=== PATIENT | female | born 1965 | race Two or more races ===

== ENCOUNTER 2018-01-19 07:49 | Outpatient (CLI) | payer OTHER | END 2018-01-19 07:56 | disposition home or self-care (01) | LOC: SONOGRAMA 07:49 | DX: R59.9 Enlarged lymph nodes, unspecified (principal) ==

== ENCOUNTER 2018-08-26 06:38 | Outpatient (CLI) | payer OTHER | END 2018-08-26 06:55 | disposition home or self-care (01) | LOC: EKG 06:38 | DX: I10 Essential (primary) hypertension (principal) ==

== ENCOUNTER 2019-03-15 11:37 | Inpatient (IN) | payer OTHER ==
[~2019-03-15] VITALS: Ht 154.9 cm; Wt 108.9 kg
[2019-04-15] MEDS ORDERED: LEXAPRO20 MG PO (10:07)
[2019-04-15] MEDS ORDERED: AMBIEN10 MG PO (10:07)
[2019-04-15] MEDS ORDERED: CYMBALTA60 MG PO (10:08)
[2019-04-15] MEDS ORDERED: SYNTHROID200 MCG PO (10:08)
[2019-04-15] MEDS ORDERED: LINZESS145 MCG PO (10:09)
[2019-04-22] MEDS ORDERED: GABAPENTIN100 MG PO (12:06)
[2019-04-22] MEDS ORDERED: NORFLEX100MG PO (12:06)
[2019-04-22] MEDS ORDERED: AMBIEN10 MG PO (12:07)
[2019-04-22] MEDS ORDERED: ULTRAM50 MG PO (12:08)
[2019-04-22] MEDS ORDERED: XARELTO10 MG PO (12:09)
== END 2019-04-22 17:57 | DRG 470 ==
LOC: SURG 04-20 07:00 → O/R 04-20 07:35 → SURG 04-20 11:15
PROVIDERS: ADMIT Orthopaedic Surgery
PROC: 0SRC0J9 Replacement of Right Knee Joint with Synthetic Substitute, Cemented, Open Approach (ICD-10-PCS; principal; 2019-04-20 07:00)
DX: M17.11 Unilateral primary osteoarthritis, right knee (principal); D62 Acute posthemorrhagic anemia; E66.01 Morbid (severe) obesity due to excess calories; E03.8 Other specified hypothyroidism

== ENCOUNTER 2019-07-26 11:11 | Outpatient (CLI) | payer OTHER ==
[~2019-07-26 11:11] MED LIST: AMBIEN10 MG PO; CYMBALTA60 MG PO; GABAPENTIN100 MG PO; LEXAPRO20 MG PO; LINZESS145 MCG PO; NORFLEX100MG PO; SYNTHROID200 MCG PO; ULTRAM50 MG PO; XARELTO10 MG PO
== END 2019-07-26 11:17 | disposition home or self-care (01) ==
LOC: RAD 11:11
DX: R07.89 Other chest pain (principal)

== ENCOUNTER 2019-12-08 09:02 | Inpatient (IN) | payer OTHER ==
[~2019-12-08] VITALS: Ht 154.9 cm; Wt 104.3 kg
[2019-12-28] MEDS ORDERED: HORIZANT300 MG PO (09:06)
[2020-01-04] MEDS ORDERED: ZYPREXA2.5 MG PO (10:30)
== END 2020-01-06 18:52 | disposition home or self-care (01) | DRG 470 ==
LOC: SURH 01-04 07:00 → O/R 01-04 08:51 → SURG 01-04 08:51 → SURH 01-04 09:45 → SURG 01-04 16:11
PROVIDERS: ADMIT Orthopaedic Surgery; ATTEND Orthopaedic Surgery
PROC: 0SRD0J9 Replacement of Left Knee Joint with Synthetic Substitute, Cemented, Open Approach (ICD-10-PCS; principal; 2020-01-04 09:45)
DX: M17.12 Unilateral primary osteoarthritis, left knee (principal); D62 Acute posthemorrhagic anemia; E03.8 Other specified hypothyroidism; E66.8 Other obesity; Z20.828 Contact with and (suspected) exposure to other viral communicable diseases